=== PATIENT | male | born 1970 | race Caucasian/White ===

== ENCOUNTER 2017-01-22 17:38 | Emergency (ER) | payer OTHER ==
[~2017-01-22] VITALS: Ht 180.3 cm; Wt 77.3 kg
[~2017-01-22 17:38] MED LIST: OXYC1TAB24 PO
[2017-01-22 17:48] VITALS: BP 131/90; PULSE 82; RESP 16; O2SAT 100
--- NOTE | 2017-01-22 18:26 | DRSVH ---
PROCEDURE: X-RAY RIGHT HAND, MINIMUM THREE VIEWS ([id number]) INDICATIONS: Injury pain TECHNIQUE: 3 views of the hand(s) acquired. COMPARISON: None. FINDINGS: Bones: Comminuted fracture of the base of the fifth metacarpal is noted which extends into the carpa l-metacarpal joint. Comminuted fracture of the distal third metacarpal noted which extends into the metacarpal-phalangeal joint. Fracture through the distal fourth metacarpal is noted. Soft tissues: No suspicious soft tissue calcifications. IMPRESSION: Third, fourth and fifth metacarpal fractures. Dictated by: Sharmila Tolliver MD, PhD on 01/22/2017 at 18:24 Approved by: Sharmila Tolliver MD, PhD on 01/22/2017 at 18:25
--- NOTE | 2017-01-22 19:26 | ED.REPORT ---
HPI-Extremity Problem Upper Date of Service Jan 22, 2017 ED Provider: Doc,Ed MD History of Present Illness: hit pool table about 2 hours ago with right hand, pain and swelling. right hand dominant. primary care is no one. 07/12 pain Nursing Notes Stated Complaint: R HAND INJURY Chief Complaint: Extremity Trauma Nursing Notes Reviewed: Yes Allergies: Coded Allergies: amoxicillin (Verified Allergy, Unknown, 01/22/17) clavulanic acid (Verified Allergy, Unknown, 01/22/17) Scheduled PRN oxyCODONE-Acetaminophen 5-325 mg (oxyCODONE-Acetaminophen 5-325 mg) 1 Each Tablet 1-2 TAB PO Q6H PRN PRN For Pain General Time Seen by MD: 19:24 Chief Complaint Hand injury right Hx Obtained From: Patient Location: : Hand right Severity: Current: Pain level 9 out of 10 Past Medical History Past Medical History Healthy Past Surgical History Reports: Tonsillectomy Smoking History Never Smoker Social History Lives in [place] Alcohol Use: "Social" Drug Use: Denies drug use Occupation lives with girlfriend, no work or school 01/22/2017 Ambulatory Status Independent Review of Systems Basic Review of Systems Eyes: Vision NL, No discharge Allergy / Immune: No allergy Psychiatric: Normal thought content Physical Exam Initial Vital Signs Vital Signs (First) Date Time Temp Pulse Resp B/P Pulse Ox O2 Delivery O2 Flow Rate FiO2 01/22/17 17:48 36.6 82 16 131/90 100 Room Air Initial VS: Reviewed, Vital signs normal General/Constitutional: Well-developed, Well-nourished Head / Eyes: Atraumatic, Normocephalic, PERRL ENT: Mucous membranes moist, Conjunctiva normal, No scleral icterus Neck: Supple, Non-tender, Full range of motion Respiratory: Breath sounds normal, Clear to auscultation, No respiratory distress Cardiovascular: Regular rate & rhythm, Heart sounds normal, Intact distal pulses Abdomen / GI: Soft, Non-tender, No guarding, No rebound, No distention Back: No CVA tenderness Lymphatic: No lymphadenopathy Lower Extremities: Vascular intact, Neuro intact, No swelling, No tenderness Skin: Warm, Dry, No cyanosis Neurologic: Alert, Oriented, Nonfocal Psychiatric: Mood/affect normal, Behavior normal, Normal thought content General/Constitutional: Awake, Alert, No acute distress, Well appearing, Well developed, Well hydrated, Well nourished, Cooperative, Not toxic appearing Respiratory / Chest: Atraumatic, Breath sounds NL, Breath sounds = bilat, No respiratory distress Cardiovascular: Heart rate NL, Regular rhythm, Heart sounds NL, No gallop Upper Extremity / MS: Atraumatic, Inspection NL, Full range of motion right hand with swelling at mcp on right hand. sensation intact distally, cap refill less than 2 sec. swelling in themar eminance. ecchymosis noted on palmar aspect of hand. Interpretation & Diagnostics X-Ray Interpretation Xray Interpretation: INDICATIONS: Injury pain TECHNIQUE: 3 views of the hand(s) acquired. COMPARISON: None. FINDINGS: Bones: Comminuted fracture of the base of the fifth metacarpal is noted which extends into the carpal-metacarpal joint. Comminuted fracture of the distal third metacarpal noted which extends into the metacarpal-phalangeal joint. Fracture through the distal fourth metacarpal is noted. Soft tissues: No suspicious soft tissue calcifications. IMPRESSION: Third, fourth and fifth metacarpal fractures. Dictated by: Sharmila Tolliver MD, PhD on 01/22/2017 at 18:24 Approved by: Sharmila Tolliver MD, PhD on 01/22/2017 at 18:25 Re-Eval/Medical Decision Med Decision/Clinical Course 46 year old male presents for evualation after punching the pool table earlier today. X-ray indicates multiple fractures. No sign of compartment syndrome. Patient is splinted and instructed to follow up with ortho Discharge & Departure Impression: Primary Impression: Multiple hand fractures Encounter type: initial encounter Fracture type: closed Laterality: right Qualified Code: S62.91XA - Unspecified fracture of right wrist and hand, initial encounter for closed fracture Disposition: Home Patient Instructions: Hand Fracture (ED) Additional Instructions: X-ray indicates you have broken 3 bones in your right hand. Please continue with ice even after you have been splinted. Please call ortho for follow up appointment. Use ibuprofen 800 mg 3 times a day for swelling and discomfort. Can use percocet 1 up to 2 times a day as needed for severe pain. Please call Dr. Cook for an appointment. Referrals: Octavio Cook DO EDSupervising Provider for APC: Delisa Yuen MD copies to: Octavio Cook Sue ARNP Jan 22, 2017 19:26
[2017-01-22 19:31] VITALS: BP 146/93; PULSE 102; RESP 20; O2SAT 99
[2017-01-22] MEDS ORDERED: oxyCODONE-Acetamin 5-325 mg Tablet PO ONE (19:40)
[2017-01-22 20:20] VITALS: BP 154/93; PULSE 104; RESP 17; O2SAT 95
[2017-02-04] MEDS ORDERED: IBUP800T28 PO (15:43)
== END 2017-01-22 20:20 | disposition home or self-care (01) ==
LOC: SED 17:38
DX: S62.91XA Unspecified fracture of right hand, initial encounter for closed fracture (principal); W22.8XXA Striking against or struck by other objects, initial encounter; Y93.89 Activity, other specified; Y92.9 Unspecified place or not applicable; Y99.8 Other external cause status; Z88.1 Allergy status to other antibiotic agents; Z88.8 Allergy status to other drugs, medicaments and biological substances

== ENCOUNTER 2017-02-05 12:16 | Day surgery (SDC) | payer MEDICAID ==
[~2017-02-05] VITALS: Ht 180.3 cm; Wt 76.2 kg
[2017-02-05] VITALS (13 sets, daily range): BP systolic 140–172; BP diastolic 90–105; PULSE 63–99; RESP 12–19; O2SAT 94–99
--- NOTE | 2017-02-05 07:18 | PCM.HPANE ---
Patient Data Surgeon Admitting Provider: Attending Provider:Dank Argueta DO Primary Care Physician:Dakota Other Provider:Tamara Salvador Anesthesia Reason for Visit Right 3RD, 4TH, 5TH Metacarpal Fracture Ht/WT & BMI Height (Feet): 5 Height (Inches): 11 Weight (Kilograms): 76.20 Body Mass Index 23.00 Allergies Coded Allergies: Galva Nut (Verified Allergy, Unknown, 02/05/17) Past Anesthesia History Anesthesia History: Denies:: Abnormal Airway, Anesthesia Reactions, Difficult Intubation, Fam Anesthesia Reaction, Malignant Hyperthermia Diabetes History Hx Diabetes?: No MRSA MRSA: No Medications Hypertension Medication: No Home Meds Incl Beta Alber: No Reported Medications Ibuprofen 800 Mg [id number] Mg PO BID PRN For Pain Ref 0 02/04/17 Discontinued Scripts oxyCODONE-Acetaminophen 5-325 mg 1 Each Tablet1-2 Tab PO Q6H PRN For Pain #20 TABLET Prov:Jim Robles MD 06/30/16 History HEENT History: Denies:: Abnormal Airway Cataracts Difficult Intubation Dysphagia Glaucoma Hearing Problem Sinus Problem TMJ Hx of Heart Problems?: No Cardiovascular History: Denies:: AICD Abdominal Aortic Aneurism Atrial Fibrillation Congestive Heart Failure Edema Heart Murmur Hypertension Irregular Heartbeat Pacemaker Hx of Respiratory Problem?: No Respiratory History: Denies:: Asthma COPD Emphysema Oxygen Administration Pneumonia Tuberculosis Use of C-PAP Machine Use of Inhalers / NEBS Hx Neurologic Problems?: No Neurological History: Denies:: CVA Headaches Multiple Sclerosis Parkinson's Disease Seizures Hx of GI Problems?: No Gastrointestinal History: Denies:: Cirrhosis Gall Bladder Disease Gastroesphageal Reflux Gastrointestinal Bleeding Heartburn Hepatitis Hiatal Hernia Liver Disease Hx of Problems?: No Genitourinary History: Denies:: Kidney Stones Urinary Tract Infection Male Hx: Denies:: Prostate Problems Skin History: Denies:: History Skin Disorders? Pressure Ulcers Hx Musculoskeletal Problems?: Yes Musculoskeletal History: Positive for:: Musculoskeletal Trauma (right hand fracture current admission problem) Denies:: Fibromyalgia Joint Replacement Myasthenia Gravis Osteoarthritis Rheumatoid Arthritis Hx of Psycho/Social Problems?: No Psycho Social History: Denies:: Anxiety Hx Depression Hx Surgeries?: Yes (tonsil as child) Hx Any Other Health Problems?: Yes Other History: Denies:: Cancer Thyroid Disease History Blood Transfusions: Positive for:: Accept Blood Products? Denies:: Blood Transfusions Hx Diabetes: No Hx Alcohol Use: YesAlcoholic Drinks Per Day: couple of beers dailyHx Substance Use: No Smoking Status: Never Smoker Have You Smoked inLast 12 mo: Yes Stop/Bang Treated for Sleep Apnea?: No Do You Have a CPAP Machine?: No S-Snoring: Do You Snore Loudly: No T-Tired: feel tired, fatigued: No O-Obsered: Observed not breath: No P-Blood Pressure: treated: No B- Body Mass Index > 35 kg/m2: No A- Age over 50: No N- Neck Large Circumference: No G- Gender Male: Yes NILTON Total Score: 1 NILTON Risk Assessment: Low Risk, <3 Yes Risk Assessment Category Category 1A: Patient has history of documented sleep apnea, and HAS NOT received any narcotic, sedative or anesthesia administration during this stay. Category 1B: Patient has history of documented sleep apnea, and HAS received any narcotic , sedative or anesthesia administration during this stay Category 2: Patient has SUSPECTED Obstructive Sleep Apnea, and HAS received any narcotic , sedative or anesthesia administration during this stay. Category 3: Patient has SUSPECTED Obstructive Sleep Apnea and HAS NOT received narcotic, sedative or anesthesia administration during this stay. Category 4: Outpatient in Procedural Areas with known sleep apnea or who screen positive for High Risk via the STOP/BANG questionnaire. Exam Exam General Appearance: Alert, Oriented X3, Cooperative, No Acute Distress HEENT/AIRWAY: MP 2 Lungs: Clear to Auscultation, Normal Air Movement Heart: Exam Unremarkable, Regular Rate/Rhythm, No Murmurs/Rubs/Gallops Plan Impression Patient chart reviewed, patient interviewed and anesthestic plan with risks, benefits, and alternatives discussed, and informed consent obtained. ASA Physical Status: ASA1 Normal Healthy Anesthetic Plan: GA Bene/Risks/Altern/Consents: Yes HP Complete Prior to Induction: Yes Luis Carlos Menendez MD Feb 05, 2017 07:18
[~2017-02-05 12:16] MED LIST changes: +CeFAZolin 2 Gm/50 mL D5W IV Premix IV ONE; +IBUP800T28 PO; -OXYC1TAB24 PO
[2017-02-05] MEDS ORDERED: Ketamine 10 mg/mL 20 mL Inj ONE (12:17)
[2017-02-05] MEDS ORDERED: fentaNYL-PF 50 mCg/mL 2 mL Inj ONE (12:17)
[2017-02-05] MEDS ORDERED: Propofol 10,000 mCg/mL 20 mL Inj ONE (12:17)
[2017-02-05] MEDS ORDERED: Dexamethasone 4 mg/mL Inj ONE (12:17)
[2017-02-05] MEDS ORDERED: Ondansetron 2 mg/mL 2 mL Inj ONE (12:17)
[2017-02-05] MEDS: Lactated Ringer's 1,000 ML IV SCH ×2 (12:46→14:21)
[2017-02-05] MEDS ORDERED: CeFAZolin Inj 2 gm / 50mL D5W IV ONE (13:01)
[2017-02-05] MEDS ORDERED: Lactated Ringer's 500 ML IV PRN (14:18)
[2017-02-05] MEDS ORDERED: Lactated Ringer's 1,000 ML IV SCH (14:18)
[2017-02-05] MEDS ORDERED: Ondansetron 2 mg/mL 2 mL Inj IVPUSH PRN (14:20)
[2017-02-05] MEDS ORDERED: Phenylephrine 10,000 mCg/mL Inj IVPUSH PRN (14:20)
[2017-02-05] MEDS ORDERED: EPHEDrine Sulfate 50 mg/mL Inj IVPUSH PRN (14:20)
[2017-02-05] MEDS ORDERED: HYDROmorphone 1 mg/mL Inj IVPUSH PRN (14:20)
[2017-02-05] MEDS ORDERED: MetoCLOpramide 5 mg/mL 2 mL Inj IVPUSH PRN (14:20)
[2017-02-05] MEDS ORDERED: Dexamethasone 4 mg/mL Inj IVPUSH PRN (14:20)
[2017-02-05] MEDS ORDERED: fentaNYL-PF 50 mCg/mL 2 mL Inj IVPUSH PRN (14:20)
[2017-02-05] MEDS ORDERED: Lidocaine 1%-Epi 1:100,000 20 mL Inj INFILTRATE ONE (14:26)
[2017-02-05] MEDS ORDERED: Lactated Ringer's 1,000 ML IV ONE (15:58)
[2017-02-05] MEDS ORDERED: oxyCODONE-Acetamin 5-325 mg Tablet PO PRN (16:30)
[2017-02-05] MEDS ORDERED: MeTOProlol 1 mg/mL 5 mL Inj ONE (16:52)
[2017-02-05] MEDS ORDERED: MeTOProlol 1 mg/mL 5 mL Inj IVPUSH ONE (16:55)
--- NOTE | 2017-02-05 17:06 | PCM.ANEP2 ---
Post Anesthesia Evaluation ASA/CMS Post Anesthesia VS in Patient's Normal Range?: Yes Resp Stable; Airway Patent?: Yes CV Function & Hydration Stable: Yes Mental Status Recovered?: Yes Pain control Satisfactory?: Yes N/V Control Satisfactory?: Yes Luis Carlos Menendez MD Feb 05, 2017 17:06
--- NOTE | 2017-02-05 17:06 | PCM.ANEP1 ---
Post Anesthesia Phase 1 PACU Phase 1 Assessment Vital Signs Vital Signs Date Time Temp Pulse Resp B/P Pulse Ox O2 Delivery O2 Flow Rate FiO2 02/05/17 17:00 85 19 163/94 94 Room Air 02/05/17 16:50 87 12 161/94 95 Room Air 02/05/17 16:45 94 12 163/104 94 Room Air 02/05/17 16:40 36.8 89 14 162/93 96 Room Air 02/05/17 16:35 99 15 162/93 97 Room Air 02/05/17 16:30 91 17 163/103 96 Room Air 02/05/17 16:25 94 15 162/102 99 Simple Mask 10 02/05/17 16:20 36.4 99 17 164/105 99 Simple Mask 10 Anesthetic Administered: GA Level of Alertness: Awake, talking FITZPATRICK's with Equal Strength: Yes Pain: No Nausea or Vomiting: No Oxygen Delivery: Nasal Cannula, Simple Mask Lungs: Clear to Auscultation, Normal Air Movement Dermatome Level: Full Sensation Luis Carlos Menendez MD Feb 05, 2017 17:06
--- NOTE | 2017-02-06 15:33 | OP ---
[address] [address] OPERATIVE REPORT PATIENT: KEYSHA DELGADILLO : 1970 MR#: [id number] ADMIT: 02/05/2017 JOB ID: [id number] DATE OF SURGERY: 02/05/2017 PREOPERATIVE DIAGNOSIS(ES): 1. Right 3rd and 4th metacarpal neck fracture. 2. Right 5th metacarpal base fracture. POSTOPERATIVE DIAGNOSIS(ES): 1. Right 3rd and 4th metacarpal neck fracture. 2. Right 5th metacarpal base fracture. PROCEDURES: 1. Open reduction, internal fixation of the right 3rd and 4th metacarpal neck fractures. 2. Closed reduction and percutaneous pinning of a right 5th metacarpal base fracture. SURGEON: Dank Argueta D.O. ASSISTANTS: Lisandra Knapp PA-C. The assistance of Lisandra Knapp PA-C was necessary for help with maintaining the reduction during the operative procedure. ANESTHESIA: General. HISTORY: The patient is a 46-year-old male that presented to me two weeks after punching his pool table. He sustained displaced 3rd and 4th metacarpal neck fractures as well as a comminuted 5th metacarpal base fracture. I discussed with the patient due to the displacement of the 3rd and 4th metacarpal neck fractures to proceed with operative fixation. He understood the risks include, but not limited to, neurovascular injury, tendon injury, infection, failure of fixation, stiffness, persistent pain, all which would require further intervention. The patient had all questions answered. Consent was signed and placed in the chart. PROCEDURE IN DETAIL: The patient was brought to the operative suite and placed supine on the operating table. Surgical time-out was performed. Everyone in the room was in agreement. After appropriate anesthesia was obtained, the right upper extremity was then prepped and draped in a sterile fashion. The patient's right 3rd metacarpal neck fracture was approached first. A small longitudinal incision was made directly overlying the 3rd metacarpophalangeal joint. Dissection was carried down to the extensor tendon. There was already a tear within the ulnar sagittal band that allowed for mobilization of the extensor tendon radially. This exposed the capsule. The capsule was then opened transversely and the metacarpal head exposed. There was fragmentation within the metacarpal heads but the fragmentation was incomplete. Fracture reduction was attempted to be performed closed but was unable to be performed secondary to the subacute nature of the fracture. The incision was extended approximately an additional 2 cm to expose the fracture site. Fracture fibrous tissue was then debrided and manually reduced. After anatomic reduction was obtained, a retrograde K-wire was placed across the metacarpal head along the axis of the metacarpal shaft both on the AP and lateral projections. Next, a Synthes 3.0 mm headless cannulated screw was advanced overlying the wire. There was compression across the fracture site but also some increased fragmentation of the metacarpal head. This freed up, one loose dorsal fragment from the metacarpal head which was too small for additional fixation. Thus this area of cartilage was disposed of. Placement of the screw was verified under fluoroscopy. Attention was then turned towards the 4th metacarpal. Again a longitudinal incision was made overlying the 4th metacarpophalangeal joint. Dissection was carried through the extensor tendon. Extensor tendon split was made for this approach and the 4th MCP joint was exposed with the 4th metacarpal head. Again the incision had to be extended proximally in order to identify the fracture site for an open reduction. Once the fracture was reduced, a retrograde K-wire was advanced and again another 3.0 mm Synthes headless cannulated screw was advanced overlying the K-wire. Excellent fixation was achieved. Multiple views on fluoroscopy were utilized to verify appropriate placement of the hardware and acceptable reduction. The K-wires were then removed from both the cannulated screws and attention turned towards the 5th metacarpal base. A closed reduction was able to be performed and transverse metacarpal pinning was able to be performed across the base of the 5th metacarpal into the base of the 4th both proximal and distal to the fracture site and an additional fixation wire was used across the base of the 5th metacarpal into the hamate. The pins were then bent outside the skin and cut short with the position all verified under fluoroscopy. No malrotation of the fingers were identified with passive wrist extension and passive finger flexion. Further irrigation was performed followed by closure of the operative wound. The 3rd metacarpal phalangeal joint incision was first closed by repairing the ulnar sagittal band rent with 4-0 Vicryl and 4-0 nylon for the skin. The incision overlying the 4th metacarpophalangeal joint was closed by first securing and enclosing the extensor tendon split with 4-0 nylon and then again with 4-0 nylon for the skin. The patient was then placed into a well-padded, well-molded ulnar gutter splint. ESTIMATED BLOOD LOSS: Less than 5 cc. COMPLICATIONS: Further fragmentation of the 3rd metacarpal head with implantation of the cannulated screw. POSTOPERATIVE PLAN: The patient will followup with occupational therapy in one week to be transitioned into a brace and have him start initiating range of motion to the fingers. IMPLANTS: Two Synthes 3.0 mm headless cannulated screws and three 0.045 inch K-wires.
== END 2017-02-05 23:59 | disposition home or self-care (01) ==
LOC: SAS 12:16
PROVIDERS: ATTEND Orthopaedic Surgery
DX: S62.332A Displaced fracture of neck of third metacarpal bone, right hand, initial encounter for closed fracture (principal); S62.334A Displaced fracture of neck of fourth metacarpal bone, right hand, initial encounter for closed fracture; S62.316A Displaced fracture of base of fifth metacarpal bone, right hand, initial encounter for closed fracture; X58.XXXA Exposure to other specified factors, initial encounter; Y93.89 Activity, other specified; Y92.9 Unspecified place or not applicable; Y99.8 Other external cause status; F17.210 Nicotine dependence, cigarettes, uncomplicated